=== PATIENT | female | born 1980 | race Caucasian/White ===

== ENCOUNTER 2017-10-07 11:08 | Emergency (ER) | payer BC ==
[2017-10-07 11:08] VITALS: BP 94/53
[2017-10-07 11:12] VITALS: BMI 23.5
[2017-10-07 11:40] LABS: BILIRUBIN,URINE NEGATIVE (NEGATIVE); BLOOD/HEMOGLOBIN,URINE 1+ (NEGATIVE); GLUCOSE, URINE NEGATIVE (NEGATIVE); KETONES,URINE NEGATIVE (NEGATIVE); LEUKOCYTE ESTERASE ,URINE 1+ (NEGATIVE); NITRITES,URINE NEGATIVE (NEGATIVE); PH,URINE 6.5 (5.0 - 8.0); PROTEIN,URINE 1+ (NEGATIVE); UROBILINOGEN,URINE NORMAL (NORMAL)
[2017-10-07 11:46] LABS: AMORPHOUS SEDIMENT,UR 1+ /HPF (NEGATIVE); APPEARANCE,URINE HAZY (CLEAR); BACTERIA,URINE TRACE /HPF (NEGATIVE); COLOR,URINE YELLOW (YELLOW); RBC,URINE 0-2 /HPF (NEGATIVE); SQUAMOUS EPITHELIAL CELL,UR RARE /HPF (NEGATIVE)
--- NOTE | 2017-10-11 16:39 | DR.PREG ---
HPI - PCP Primary Care Physician: SHAMIR - Chief Complaint Chief Complaint:: 36 4/7 OB WITH C/O TIGHTNESS TO LOWER ABDOMEN, POSSIBLE MARCIA PEÑA. PAIN STARTED YESTERDAY BUT WAS INCONSISTENT. PT. STATES THE PAIN IS EVERY 2-5 MINUTES & THEN SUSBSIDES AND THEN COMES BACK. PT. STATES SHE STARTED SPOTTING LAST NIGHT. DENIES FLUID LEAKAGE. PT. STATES SHE HAD AN ULTRASOUND ON WEDNESDAY AND SHE WAS 2 CM DILATED AND CERVIX WAS THIN. - Source History Provided: Patient - Mode of Arrival Mode of Arrival: Ambulatory - Context : 6 Para: 5 - Timing Onset of Chief Complaint: 10/06/17 Pain: Regular - Duration Pain Strength: Moderate PMH - PMH Past Medical History: No Past Surgical History: No Surgical History: No History - Family History History of Family Medical Conditions: Yes Family Medical History: Diabetes Mellitus, Hypertension - Social History Does patient currently use any type of tobacco product: No Have you used tobacco products in the last 12 months: No Type of Tobacco Use: None Does any household member use tobacco: No Alcohol Use: None Do you use any recreational Drugs:: No Lives With: Spouse Lives Where: Home - infectious screening In the last 2 months have you had wt loss of >10#?: NO Have you had fever, night sweats or hemotysis?: No Have you traveled outside the country in the last 6 months?: No Isolation: Standard PE - Vital Signs Vitals: Blood Pressure [Left Arm] 94/53 Blood Pressure 94/53 ROR - Labs Reviewed Laboratory: Specimen Type Clean catch urine 10/07/17 11:15 Urine Color Yellow (YELLOW) 10/07/17 11:15 Urine Appearance Hazy (CLEAR) 10/07/17 11:15 Urine pH 6.5 (5.0 - 8.0) 10/07/17 11:15 Ur Specific [place] 1.015 (1.000-1.030) 10/07/17 11:15 Urine Protein 1+ (NEGATIVE) 10/07/17 11:15 Urine Glucose (UA) Negative (NEGATIVE) 10/07/17 11:15 Urine Ketones Negative (NEGATIVE) 10/07/17 11:15 Urine Occult Blood 1+ (NEGATIVE) 10/07/17 11:15 Urine Nitrite Negative (NEGATIVE) 10/07/17 11:15 Urine Bilirubin Negative (NEGATIVE) 10/07/17 11:15 Urine Urobilinogen Normal (NORMAL) 10/07/17 11:15 Ur Leukocyte Esterase 1+ (NEGATIVE) 10/07/17 11:15 Urine RBC 0-2 /HPF (NEGATIVE) 10/07/17 11:15 Urine WBC 0-2 /HPF (NEGATIVE) 10/07/17 11:15 Ur Squamous Epith Cells Rare /HPF (NEGATIVE) 10/07/17 11:15 Amorphous Sediment 1+ /HPF (NEGATIVE) 10/07/17 11:15 Urine Bacteria Trace /HPF (NEGATIVE) 10/07/17 11:15 Ur Culture Indicated? No/not indicated 10/07/17 11:15 - Discharge Plan Disposition: 01 HOME, SELF-CARE Condition: Stable - Follow ups/Referrals Follow ups/Referrals: RODRIGO BARKSDALE [Primary Care Provider] - 3 days - Instructions Instructions: Third Trimester of , [id number] Additional Instructions: Return to ER for bright red vaginal bleeding, increase in pain, decrease in movement, spontaneous rupture of membranes. Keep all schedule appointments with .
== END 2017-10-07 12:37 | disposition home or self-care (01) ==
LOC: ER 11:14
DX: O60.03 Preterm labor without delivery, third trimester (principal)
CPT/HCPCS: 81001; 99284

== ENCOUNTER 2017-10-07 21:58 | Inpatient (IN) | payer BC ==
[2017-10-07 22:17] VITALS: BMI 23.5
[2017-10-07] MEDS ORDERED: D5 1/2 NS 1000 ML 1,000 ML IV SCH (22:25)
[2017-10-07] MEDS ORDERED: PITOCIN IVP ONE (22:25)
[2017-10-07 22:26] LABS: BASOPHILS # (AUTO) 0.1 X10^3/uL (0.0-0.1); BASOPHILS % (AUTO) 0.6 % (0.2-1.0); EOSINOPHILS # (AUTO) 0.2 x10^3/uL (0.0-0.2); EOSINOPHILS % (AUTO) 1.4 % (0.9-2.9); HEMATOCRIT 32.4 % (36.0-47.0); LYMPHOCYTES # (AUTO) 2.6 X10^3/uL (1.3-2.9); LYMPHOCYTES % (AUTO) 16.4 % (21.0-51.0); MEAN CORPUSCULAR HEMOGLOBIN 29.2 pg (27.0-34.0); MEAN CORPUSCULAR HGB CONC 34.1 g/dL (33.0-35.0); MEAN CORPUSCULAR VOLUME 85.8 fL (80.0-100.0); MEAN PLATELET VOLUME 8.6 fL (7.4-11.0); MONOCYTES # (AUTO) 1.1 x10^3/uL (0.3-0.8); MONOCYTES % (AUTO) 7.2 % (0.0-13.0); NEUTROPHILS # (AUTO) 11.6 x10^3/uL (2.2-4.8); NEUTROPHILS % (AUTO) 74.4 % (42.0-75.0); PLATELET COUNT 224 X10^3/uL (150.0-450.0); RED BLOOD COUNT 3.78 X10^6/uL (3.5-5.4); RED CELL DISTRIBUTION WIDTH 13.6 % (11.6-16.5); WHITE BLOOD COUNT 15.7 X10^3/uL (3.6-10.0)
[2017-10-07] MEDS ORDERED: PITOCIN ONE (22:36)
[2017-10-07] MEDS ORDERED: D5 1/2 NS 1L W PITOCIN 20 UNITS/L 20 UNITS/1,000 ML BAG IV ONE (22:36)
[2017-10-07] MEDS ORDERED: D5 1/2 NS 1000 ML 1,000 ML IV ONE (22:37)
[2017-10-07 22:39] LABS: ALANINE AMINOTRANSFERASE 17 Units/L (12-78); ALBUMIN 2.5 g/dL (3.4-5.0); ALKALINE PHOSPHATASE 204 Units/L (46-116); ASPARTATE AMINO TRANSFERASE 19 Units/L (15-37); BLOOD UREA NITROGEN 8 mg/dL (7-18); CALCIUM 8.1 mg/dL (8.5-10.1); CHLORIDE 103 mmol/L (98-107); COR CA(FOR HYPOALB) 9.3 mg/dL (8.5-10.1); CREATININE 0.66 mg/dL (0.55-1.02); SODIUM 137 mmol/L (136-145); TOTAL PROTEIN 6.1 g/dL (6.4-8.2); eGFR BLACK RACES > 60 (>60); eGFR NON BLACK RACES > 60 (>60)
[2017-10-07] MEDS ORDERED: MOTRIN TAB 800 MG PO PRN (23:09)
[2017-10-07] MEDS ORDERED: PHENERGAN INJ 25 MG IV PRN (23:09)
[2017-10-07] MEDS ORDERED: D5 1/2 NS 1000 ML 1,000 ML with PITOCIN 20 UNITS IV SCH ×2 (23:45)
[2017-10-08] MEDS ORDERED: MOTRIN TAB 800 MG PO PRN (00:12)
[2017-10-08] MEDS ORDERED: AMBIEN PO PRN (00:12)
[2017-10-08] MEDS ORDERED: DERMOPLAST SPRAY TOP PRN (00:12)
[2017-10-08] MEDS ORDERED: ADACEL TDaP IM ONE (00:12)
[2017-10-08] MEDS ORDERED: MILK OF MAGNESIA PO PRN (00:12)
[2017-10-08] MEDS ORDERED: PHENERGAN INJ 25 MG IV PRN (00:12)
[2017-10-08 04:04] LABS: HEMATOCRIT 31.9 % (36.0-47.0); HEMOGLOBIN 10.8 g/dL (12.0-16.0)
[2017-10-08] MEDS: D5 1/2 NS 1000 ML 1,000 ML with PITOCIN 20 UNITS IV SCH ×4 (08:39→15:36)
[2017-10-08] MEDS: ZANTAC PO SCH ×2 (08:39→20:01)
[2017-10-08] MEDS: ASPIRIN EC 81 MG PO SCH (08:39)
[2017-10-08] MEDS: PRENATAL PLUS PO SCH (08:39)
[2017-10-09 04:55] VITALS: BP 84/54
[2017-10-09] MEDS: ZANTAC PO SCH (09:34)
[2017-10-09] MEDS: PRENATAL PLUS PO SCH (09:34)
[2017-10-09] MEDS: ASPIRIN EC 81 MG PO SCH (09:34)
--- NOTE | 2017-10-11 18:44 | DR.PREG ---
HPI - PCP Primary Care Physician: anastacio - Chief Complaint Chief Complaint:: "I AM HAVING CONTRACTIONS NOW ABOUT EVERY 2 MINS, I AM HURTING." SPOUSE STATES, "SHE WAS HERE EARLIER, EMILE EVERY 8 MINS , DILATED 3 CM AND SENT HOME." PATIENT DENIES ANY GUSH OF FLUIDS BUT STATES, "I HAVE BLOODY SHOW." - Source History Provided: Patient, Significant Other - Mode of Arrival Mode of Arrival: Ambulatory - Context : 8 Para: 5 - Timing Onset of Chief Complaint: 10/07/17 Pain: Regular - Duration Pain Strength: Strong PMH - PMH Past Medical History: No Past Surgical History: No Surgical History: No History - Family History History of Family Medical Conditions: Yes Family Medical History: Diabetes Mellitus, Coronary Artery Disease, Hypertension - Social History Does patient currently use any type of tobacco product: No Have you used tobacco products in the last 12 months: No Type of Tobacco Use: None Does any household member use tobacco: No Alcohol Use: None Do you use any recreational Drugs:: No Lives With: Spouse Lives Where: Home - infectious screening Have you traveled outside the country in the last 6 months?: No Isolation: Standard PE - Vital Signs Vitals: Temperature 97.4 F Pulse Rate 72 Respiratory Rate 22 Blood Pressure [Left Arm] 94/53 Blood Pressure 120/78 O2 Sat by Pulse Oximetry 100 ROR - Labs Reviewed Result Diagrams: 10/08/17 03:30 10/07/17 22:14 Laboratory: WBC 15.7 X10^3/uL (3.6-10.0) H 10/07/17 22:14 RBC 3.78 X10^6/uL (3.5-5.4) 10/07/17 22:14 Hgb 10.8 g/dL (12.0-16.0) L 10/08/17 03:30 Hct 31.9 % (36.0-47.0) L 10/08/17 03:30 MCV 85.8 fL (80.0-100.0) 10/07/17 22:14 MCH 29.2 pg (27.0-34.0) 10/07/17 22:14 MCHC 34.1 g/dL (33.0-35.0) 10/07/17 22:14 RDW 13.6 % (11.6-16.5) 10/07/17 22:14 Plt Count 224 X10^3/uL (150.0-450.0) 10/07/17 22:14 MPV 8.6 fL (7.4-11.0) 10/07/17 22:14 Neut % 74.4 % (42.0-75.0) 10/07/17 22:14 Lymph % 16.4 % (21.0-51.0) L 10/07/17 22:14 [place] % 7.2 % (0.0-13.0) 10/07/17 22:14 Eos % 1.4 % (0.9-2.9) 10/07/17 22:14 Baso % 0.6 % (0.2-1.0) 10/07/17 22:14 Neut # 11.6 x10^3/uL (2.2-4.8) H 10/07/17 22:14 Lymph # 2.6 X10^3/uL (1.3-2.9) 10/07/17 22:14 [place] # 1.1 x10^3/uL (0.3-0.8) H 10/07/17 22:14 Eos # 0.2 x10^3/uL (0.0-0.2) 10/07/17 22:14 Baso # 0.1 X10^3/uL (0.0-0.1) 10/07/17 22:14 Absolute Nucleated RBC 0.1 /100WBC 10/07/17 22:14 Sodium 137 mmol/L (136-145) 10/07/17 22:14 Corrected Sodium TNP 10/07/17 22:14 Potassium 3.4 mmol/L (3.5-5.1) L 10/07/17 22:14 Chloride 103 mmol/L (98-107) 10/07/17 22:14 Carbon Dioxide 26.0 mmol/L (21-32) 10/07/17 22:14 BUN 8 mg/dL (7-18) 10/07/17 22:14 Creatinine 0.66 mg/dL (0.55-1.02) 10/07/17 22:14 Est GFR (MDRD) Af Amer > 60 (>60) 10/07/17 22:14 Est GFR (MDRD) Non-Af > 60 (>60) 10/07/17 22:14 Glucose 85 mg/dL (65-99) 10/07/17 22:14 Calcium 8.1 mg/dL (8.5-10.1) L 10/07/17 22:14 Corrected Calcium 9.3 mg/dL (8.5-10.1) 10/07/17 22:14 Total Bilirubin 0.40 mg/dL (0.2-1.0) 10/07/17 22:14 AST 19 Units/L (15-37) 10/07/17 22:14 ALT 17 Units/L (12-78) 10/07/17 22:14 Alkaline Phosphatase 204 Units/L (46-116) H 10/07/17 22:14 Total Protein 6.1 g/dL (6.4-8.2) L 10/07/17 22:14 Albumin 2.5 g/dL (3.4-5.0) L 10/07/17 22:14 Globulin 3.6 g/dL (2.5-4.5) 10/07/17 22:14 Albumin/Globulin Ratio 0.7 Ratio (1.1-2.1) L 10/07/17 22:14 RPR Nonreactive (NONREACTIVE) 10/07/17 22:14 Tissue Pathology To follow 10/08/17 00:36 Blood Type O POSITIVE 10/07/17 22:14 - Discharge Plan Disposition: 09 ADMITTED INPATIENT Condition: Stable - Follow ups/Referrals - Instructions
== END 2017-10-09 11:26 | disposition home or self-care (01) | DRG 775 ==
LOC: ER 21:58 → LD 22:25 → MED/SURG 10-08 00:14
PROVIDERS: ADMIT Specialist; ATTEND Specialist
PROC: 10E0XZZ Delivery of Products of Conception, External Approach (ICD-10-PCS; principal; 2017-10-07)
DX: O22.23 Superficial thrombophlebitis in pregnancy, third trimester (principal); Z37.0 Single live birth; Z3A.36 36 weeks gestation of pregnancy; O60.14X0 Preterm labor third trimester with preterm delivery third trimester, not applicable or unspecified; O09.513 Supervision of elderly primigravida, third trimester; Z22.330 Carrier of Group B streptococcus
CPT/HCPCS: 36415; 59409; 80053; 85014; 85018; 85025; 86592; 86900; 86901; 96365; 99284; A4216; A4222; S0197; J2590; J7042

== ENCOUNTER → 2018-01-12 | Outpatient (CLI) | payer BC ==
[2018-01-12 16:58] LABS: BASOPHILS % (AUTO) 0.6 % (0.2-1.0); EOSINOPHILS # (AUTO) 0.1 x10^3/uL (0.0-0.2); EOSINOPHILS % (AUTO) 1.6 % (0.9-2.9); HEMATOCRIT 37.6 % (36.0-47.0); HEMOGLOBIN 13.2 g/dL (12.0-16.0); LYMPHOCYTES # (AUTO) 3.4 X10^3/uL (1.3-2.9); LYMPHOCYTES % (AUTO) 47.1 % (21.0-51.0); MEAN CORPUSCULAR HEMOGLOBIN 29.6 pg (27.0-34.0); MEAN CORPUSCULAR VOLUME 84.6 fL (80.0-100.0); MEAN PLATELET VOLUME 8.3 fL (7.4-11.0); MONOCYTES # (AUTO) 0.5 x10^3/uL (0.3-0.8); MONOCYTES % (AUTO) 6.4 % (0.0-13.0); NEUTROPHILS # (AUTO) 3.1 x10^3/uL (2.2-4.8); NEUTROPHILS % (AUTO) 44.3 % (42.0-75.0); PLATELET COUNT 276 X10^3/uL (150.0-450.0); RED BLOOD COUNT 4.45 X10^6/uL (3.5-5.4); WHITE BLOOD COUNT 7.1 X10^3/uL (3.6-10.0)
[2018-01-12 17:03] LABS: BLOOD UREA NITROGEN 19 mg/dL (7-18); CALCIUM 8.6 mg/dL (8.5-10.1); CARBON DIOXIDE 31.1 mmol/L (21-32); CHLORIDE 102 mmol/L (98-107); COR NA(FOR HYPERGLY) 140 mmol/L (136-145); CREATININE 1.03 mg/dL (0.55-1.02); SODIUM 140 mmol/L (136-145); eGFR BLACK RACES > 60 (>60); eGFR NON BLACK RACES > 60 (>60)
[2018-01-12 17:09] LABS: SERUM PREGNANCY TEST, QUAL NEGATIVE <10 mIU/mL
[2018-01-12 17:15] LABS: APPEARANCE,URINE CLEAR (CLEAR); COLOR,URINE YELLOW (YELLOW); PH,URINE 6.5 (5.0 - 8.0)
[2018-01-12 17:16] LABS: BILIRUBIN,URINE NEGATIVE (NEGATIVE); BLOOD/HEMOGLOBIN,URINE NEGATIVE (NEGATIVE); GLUCOSE, URINE NEGATIVE (NEGATIVE); KETONES,URINE NEGATIVE (NEGATIVE); LEUKOCYTE ESTERASE ,URINE 1+ (NEGATIVE); NITRITES,URINE NEGATIVE (NEGATIVE); PROTEIN,URINE NEGATIVE (NEGATIVE); UROBILINOGEN,URINE 1+ (NORMAL)
[2018-01-12 17:17] LABS: BACTERIA,URINE TRACE /HPF (NEGATIVE); RBC,URINE NONE SEEN /HPF (NONE SEEN); SQUAMOUS EPITHELIAL CELL,UR FEW /HPF (NEGATIVE)
== END | disposition home or self-care (01) ==
LOC: LAB 16:22
PROVIDERS: ATTEND Specialist
DX: Z01.818 Encounter for other preprocedural examination (principal); Z32.00 Encounter for pregnancy test, result unknown; Z30.2 Encounter for sterilization
CPT/HCPCS: 36415; 80048; 81001; 84703; 85025; 85610; 85730; 86850; 86900; 86901; 87086

== ENCOUNTER 2018-01-14 06:36 | Day surgery (SDC) | payer BC ==
[2018-01-14] MEDS ORDERED: ANCEF 1 GM IV PREMIX* 1 GM/50 ML BAG IV ONE (06:38)
[2018-01-14] MEDS ORDERED: D5 1/2 NS 1000 ML 1,000 ML IV ONE (06:39)
[2018-01-14] MEDS ORDERED: FENTANYL INJ 250 mcg ONE (07:15)
[2018-01-14] MEDS ORDERED: DILAUDID INJ IVP PRN (08:22)
[2018-01-14] MEDS ORDERED: BENADRYL INJ 50 MG VIAL IVP PRN (08:22)
[2018-01-14] MEDS ORDERED: REGLAN INJ 10 MG VIAL IVP PRN (08:22)
[2018-01-14] MEDS ORDERED: PHENERGAN INJ 25 MG IVP PRN (08:22)
[2018-01-14] MEDS ORDERED: ZOFRAN INJ 4 MG VIAL IVP PRN (08:22)
[2018-01-14] MEDS ORDERED: ZOFRAN INJ 4 MG VIAL ONE ×2 (08:57→11:05)
[2018-01-14 09:52] VITALS: BP 93/61
[2018-01-14] MEDS ORDERED: NEOSTIGMINE INJ ONE (11:05)
[2018-01-14] MEDS ORDERED: ULTANE GAS IN ONE (11:05)
[2018-01-14] MEDS ORDERED: QUELICIN (OR ANECTINE) ONE (11:05)
[2018-01-14] MEDS ORDERED: NORCURON INJ 10 MG VIAL ONE (11:05)
[2018-01-14] MEDS ORDERED: ROBINUL ONE (11:05)
[2018-01-14] MEDS ORDERED: VERSED ONE (11:05)
[2018-01-14] MEDS ORDERED: DIPRIVAN VIAL ONE (11:05)
[2018-01-14] MEDS ORDERED: XYLOCAINE 2 % (PLAIN) ONE (11:05)
== END 2018-01-14 09:53 | disposition home or self-care (01) | DRG 745 ==
LOC: SURG1 06:36
PROVIDERS: ATTEND Specialist
PROC: 0U574ZZ Destruction of Bilateral Fallopian Tubes, Percutaneous Endoscopic Approach (ICD-10-PCS; principal; 2018-01-14 07:30)
DX: Z30.2 Encounter for sterilization (principal)
CPT/HCPCS: A4216; A4222; J0330; J0690; J2001; J2250; J2405; J2710; J3010; J3490; J7042